=== PATIENT | female | born 1955 | race Caucasian/White ===

== ENCOUNTER → 2016-09-04 | Day surgery (SDC) | payer OTHER, MEDICARE ==
[2016-09-01 15:10] VITALS: Ht 162.6 cm; Wt 111.4 kg
[~2016-09-04] VITALS: Ht 162.6 cm; Wt 111.4 kg
[~2016-09-04] MED LIST: APR25 PO; ASPEC81 PO; DICY10CA12 PO; DILT120C68 PO; ISOS-10 PO; LEVO125T4 PO; LIDOCAINE HCL 2% 2 ML VIAL (20MG/ML) ONE; NITR0.4S UT; OMEP40CA41 PO; OXGN; PROPOFOL IV EMULSION 10 MG/ML 20 ML VIAL IV ONE; SODIUM CHLORIDE 0.9% 500ML 500 ML IV ONE; TRAZ50TA35 PO; ZNTT/150 PO
--- NOTE | 2016-09-04 10:00 | Endo History and Physical ---
History & Physical Date of Service: Sep 04, 2016. Chief Complaint: history of polyps Referring Physician: Dr. Emi Dela Cruz History of Present Illness History of polyps, for surveillance colonoscopy. Past Medical History Reflux, Hypertension, Thyroid Disease, Kidney Disease Past Surgical History Hx Cardiac Surgery: No Hx Internal Defibrillator: No Hx Pacemaker: No Hx Abdominal Surgery: Yes (MAC, KG, UMBILICAL HERNIA REPAIR X 2, APPY) Hx of Implantable Prosthesis: No Hx Post-Op Nausea and Vomiting: No Hx Cancer Surgery: No Hx Thoracic Surgery: Yes (CERVICAL FUSION, LUMBAR FUSION/LAMINECTOMY) Hx Orthopedic: No Hx Urinary Tract Surgery: No Social History Smoking Status: Never Smoker Hx Substance Use: No Hx Alcohol Use: No Allergies Coded Allergies: Adhesives (Verified Allergy, Unknown, RASH/ITCHING, 09/01/16) Morphine (Verified Adverse Reaction, Unknown, GI UPSET, 09/01/16) Current Medications Reported Home Medications Medications Dose Route/Sig Max Daily Dose Days Date Category Oxygen Gas 2 Liters NA HS 09/01/16 Reported Isosorbide Mononitrate ER (Isosorbide Mononitrate) 60 Mg Tabcr 1 Tab PO QAM 09/01/16 Reported Zantac (Ranitidine HCl) 150 Mg Tab 150 Mg PO HS 09/01/16 Reported Dicyclomine Hcl 10 Mg Cap 1 Cap PO BID 30 09/01/16 Reported Apresoline (Hydralazine Hcl) 25 Mg Tab 0.5 Tab PO BID 09/01/16 Reported Levothyroxine Sodium 125 Mcg Tab 1 Tab PO QAM 90 09/01/16 Reported Trazodone (Trazodone HCl) 50 Mg Tab 50 Mg PO HS 09/01/16 Reported Aspirin EC Low Dose (Aspirin) 81 Mg Ectab 81 Mg PO QAM 12/03/15 Rx Tiazac (Diltiazem HCl) 120 Mg Capcr 120 Mg PO BID 12/02/15 Reported Nitrostat (Nitroglycerin) 0.4 Mg Sub 0.4 Mg UT PRN 04/30/14 Reported Prilosec (Omeprazole) 40 Mg Cap 40 Mg PO QAM 04/30/14 Reported Vital Signs Weight (Kilograms): 111.36 Height (Feet): 5 Height (Inches): 4 Date Time Temp Pulse Resp B/P Pulse Ox O2 Delivery O2 Flow Rate FiO2 09/04/16 08:54 36.8 90 20 128/83 95 Room Air Physical Exam General Appearance: WD/WN, no apparent distress, + obese Respiratory/Chest: Auscultation: breath sounds normal, no wheezing Cardiovascular: Heart Auscultation: RRR, no murmurs Abdomen: Inspection & Palpation: soft, no tenderness, guarding & rebound Assessment and Plan Cleared for colonoscopy.
--- NOTE | 2016-09-04 10:39 | GI REPORT ---
Procedure Date: 09/04/2016 9:46 AM Procedure: Colonoscopy Indications: High risk colon cancer surveillance: Personal history of colonic polyps Medicines: Monitored Anesthesia Care Complications: No immediate complications. Estimated blood loss: None. Estimated Blood Loss: Estimated blood loss: none. Procedure: Pre-Anesthesia Assessment: - Prior to the procedure, a History and Physical was performed, and patient medications, allergies and sensitivities were reviewed. The patient's tolerance of previous anesthesia was reviewed. - ASA Grade Assessment: III - A patient with severe systemic disease. After I obtained informed consent, the scope was passed under direct vision. Throughout the procedure, the patient's blood pressure, pulse, and oxygen saturations were monitored continuously. The scope was introduced through the anus and advanced to the terminal ileum, with identification of the appendiceal orifice and IC valve. The colonoscopy was performed with ease. The patient tolerated the procedure well. The quality of the bowel preparation was good. The bowel preparation used was split dose MIralax. Findings: A 2 mm polyp was found in the cecum. The polyp was sessile. The polyp was removed with a cold snare. Resection and retrieval were complete. Two sessile polyps were found in the ascending colon. The polyps were 2 mm in size. These polyps were removed with a cold snare. Resection and retrieval were complete. Two sessile polyps were found in the transverse colon. The polyps were 2 mm in size. These polyps were removed with a cold snare. Resection and retrieval were complete. A 1 mm polyp was found in the descending colon. The polyp was sessile. The polyp was removed with a cold snare. Resection and retrieval were complete. Multiple medium-mouthed diverticula were found in the sigmoid colon. Verification of patient identification for the specimens was done by the physician and nurse using the patient's name, date and medical record number. Impression: - One 2 mm polyp in the cecum, removed with a cold snare. Resected and retrieved. - Two 2 mm polyps in the ascending colon, removed with a cold snare. Resected and retrieved. - Two 2 mm polyps in the transverse colon, removed with a cold snare. Resected and retrieved. - One 1 mm polyp in the descending colon, removed with a cold snare. Resected and retrieved. - Diverticulosis in the sigmoid colon. - The colon was otherwise normal to the terminal ileum with retroflexed views of the rectum. Recommendation: - Repeat colonoscopy for surveillance based on pathology results. Faawd Garcias M.D. Fawad Garcias MD 09/04/2016 10:38:45 AM This report has been signed electronically. Note Initiated On: 09/04/2016 9:46 AM
--- NOTE | 2016-09-04 10:44 | Discharge Instructions ---
Endoscopy Patient Instructions Date / Procedure(s) Performed Sep 04, 2016. Colonoscopy Allergy Information Coded Allergies: Adhesives (Verified Allergy, Unknown, RASH/ITCHING, 09/01/16) Morphine (Verified Adverse Reaction, Unknown, GI UPSET, 09/01/16) Discharge Date / Findings Sep 04, 2016. Multiple small polyps. Diverticulosis. Medication Instructions Stopped Medication(s): stopped ASA Sunday Restart Stopped Medication(s): Resume all medications today. Provider Instructions Activity Restrictions - No exercising or heavy lifting for 24 hours. - Do not drink alcohol the day of the procedure. - Do not drive a car or operate machinery until the day after the procedure. - Do not make any important decisions or sign important papers in 24 hours after the procedure. Following Day: - Return to full activity which may include returning to work/school. Diet Start your diet with liquids and light foods (jello, soup, juice, toast). Then eat your usual diet if not nauseated. Treatment For Common After Affects For mild abdominal pain, bloating, or excessive gas: - Rest - Eat lightly - Lie on right side Follow-Up Information Follow-up with Dr. Emi Dela Cruz as scheduled Anesthesia Information What You Should Know You have had a procedure that required some medicine to reduce anxiety and discomfort. This treatment is called moderate sedation. After receiving the treatment, you may be sleepy, but you will be able to breathe on your own. The effects of the treatment may last for several hours. Follow these instructions along with Activity/Diet recommendations noted above: * Do NOT do anything where dizziness or clumsiness would be dangerous. * Rest quietly at home today, then you can be up and about tomorrow. * Have a responsible person stay with you the rest of today. * You may have had an I.V. today. If so, you may take the dressing off later today. Recommendations Call your doctor if: * Trouble breathing * Continuous vomiting for more than 24 hours * Temperature above 101 degrees * Severe abdominal pain or bloating * Pain not relieved by pain medicine ordered * There is increased drainage or redness from any incision * A large amount of rectal bleeding greater than 2-3 tablespoons. (If you had a polyp/s removed or have hemorrhoids, a small amount of blood - from the rectum is to be expected.) * You have any unanswered questions or concerns. IN THE EVENT OF A SERIOUS EMERGENCY, GO TO THE NEAREST EMERGENCY ROOM Your discharge instructions were prepared by provider Fawad Garcias. Patient Instructions Signature Page Cheyenne Reina Patient (or Guardian) Signature/Date: I have read and understand the instructions given to me by my caregivers. Caregiver/RN/Doctor Signature/Date: The above-named patient and/or guardian has received patient instructions on this date. + Original Patient Signature Page (only) stays with chart. Please make copy for patient.
[2016-09-04 11:04] VITALS: BP 143/80; PULSE 83; O2SAT 95
--- NOTE | 2016-09-04 11:19 | Anesthesiology Progress Note ---
Anesthesia Post Op Note Date & Time Sep 04, 2016 at 11:19 Vital Signs Pain Intensity: 0 Vital Signs Past 12 Hours Date Time Temp Pulse Resp B/P Pulse Ox O2 Delivery O2 Flow Rate FiO2 09/04/16 11:04 83 20 143/80 95 Room Air 09/04/16 10:52 77 20 150/78 94 Room Air 09/04/16 10:35 86 20 151/81 95 Room Air 09/04/16 08:54 36.8 90 20 128/83 95 Room Air Notes Mental Status: alert / awake / arousable, participated in evaluation Pt Amnestic to Procedure: Yes Nausea / Vomiting: adequately controlled Pain: adequately controlled Airway Patency, RR, SpO2: stable & adequate BP & HR: stable & adequate Hydration State: stable & adequate Anesthetic Complications: no major complications apparent
== END | disposition home or self-care (01) ==
LOC: C.GI 08:30
PROVIDERS: ATTEND Internal Medicine Gastroenterology
DX: Z12.11 Encounter for screening for malignant neoplasm of colon (principal); D12.0 Benign neoplasm of cecum; D12.2 Benign neoplasm of ascending colon; D12.4 Benign neoplasm of descending colon; D12.3 Benign neoplasm of transverse colon; K57.30 Diverticulosis of large intestine without perforation or abscess without bleeding; I10 Essential (primary) hypertension

== ENCOUNTER → 2017-06-21 | Day surgery (SDC) | payer OTHER, MEDICARE ==
[~2017-06-21] VITALS: Ht 162.6 cm; Wt 103.0 kg
[~2017-06-21] MED LIST changes: +ACETAMINOPHEN 325 MG TAB PO PRN; -APR25 PO; +ATOR-54 PO; +ATROPINE SULFATE 0.1 MG/ML 5ML SYR IV PRN; +Cartia XT PO; -DILT120C68 PO; +DILT240C48 PO; +FENTANYL CITRATE INJ 50 MCG/1 ML 2 ML VIAL ONE; +FURO20TA PO; +HEPARIN SOD (PORCINE) 1000 UNIT/ML 10 ML VIAL ONE; +LEVO100T7 PO; -LEVO125T4 PO; -LIDOCAINE HCL 2% 2 ML VIAL (20MG/ML) ONE; +MIDAZOLAM HCL 1 MG/ML 2ML VIAL ONE; +NITROGLYCERIN/D5W 100MCG/ML 20ML SYR ONE; +NiCARDipine HCL INJ 2.5 MG/ML 10 ML AMP ONE; +ONDANSETRON INJ 2 MG/ML 2 ML VIAL IV PRN; -PROPOFOL IV EMULSION 10 MG/ML 20 ML VIAL IV ONE; +SODIUM CHLORIDE 0.9% 1000ML 250 ML IV PRN; -SODIUM CHLORIDE 0.9% 500ML 500 ML IV ONE
[2017-06-21 07:08] VITALS: BP 121/71; PULSE 71; TEMP 36.5; O2SAT 98; Ht 162.6 cm; Wt 103.0 kg
--- NOTE | 2017-06-21 08:17 | History & Physical Bridge Note ---
H&P Re-Evaluation Bridge Note: I have examined the patient, reviewed the History & Physical and in the interval since the performance of the History & Physical I have noted the following changes of clinical significance: No changes noted
--- NOTE | 2017-06-21 08:19 | Procedure Note ---
Pre-Mod Sedation Assessment General Date of Moderate Sedation: Jun 21, 2017. Vital Signs: Vital Signs Past 12 Hours Date Time Temp Pulse Resp B/P (MAP) Pulse Ox O2 Delivery O2 Flow Rate FiO2 06/21/17 07:08 36.5 71 16 121/71 98 Room Air Review Cardiovascular: regular rate, rhythm, no edema, no gallop Abdomen: normal bowel sounds, non tender, soft Lungs: chest non-tender, lungs clear, normal breath sounds Pre-Sedation Airway Assessment Oral Cavity: Dentures Short Thick Neck: No Hx of Sleep Apnea: Yes Smoking Status: Never Smoker Mallampati Classification: Class III ASA Classification: Class III Procedure Planning Contraindications-for Mod Sed: None Yes Notes The planned sedation has been discussed with the patient and consent obtained. I have identified the patient, determined the appropriateness of sedation and have assessed the patient immediately prior to the procedure. All medicine(s) and interventions are by my order.
--- NOTE | 2017-06-21 09:02 | Procedure Note ---
Post-Mod Sedation Assessment General Date of Moderate Sedation Jun 21, 2017. Vital Signs: Vital Signs Past 12 Hours Date Time Temp Pulse Resp B/P (MAP) Pulse Ox O2 Delivery O2 Flow Rate FiO2 06/21/17 08:50 61 18 147/85 (105) 95 Mask 3 06/21/17 07:08 36.5 71 16 121/71 98 Room Air Review - Discharge Criteria Vital Signs Stable: Yes Alert/Oriented/Conversant: Yes Returned to Baseline Mental St: Yes Nausea Absent/Minimal: Yes Pain/Discomfort/Absent/Minimal: Yes Normal/Baseline Respirations: Yes Active Bleeding?: No Pt Received D/C Instructions: Yes Prescriptions Given: Transmitted Specific Proced. D/C Criteria Distal Pulses Present (Cardiac: Yes Groin site assessed-Card Cath: Yes Voided Prior To Discharge: Yes Discharged Patients Adult Escort/Transportation: Yes
--- NOTE | 2017-06-21 09:18 | Cardiac Catheterization ---
Procedure Note Procedure Date Jun 21, 2017. Pre-Procedure Diagnosis Angina AUC Score 7 Post-Procedure Diagnosis Normal Coronary Arteries Procedure(s) Performed Coronary Angiography, Left Heart Cath Forest Technician Dr. Patel Heat Treat Supervisor(s) Estimated Blood Loss 5cc Medication(s) Heparin, Nicardipine, Nitroglycerin, Versed, Lidocaine 1% Summary of Findings Normal coronary arteries Elevated LVEDP Hemodynamics Rest Ao: 122/74/96 Final Ao: 131/70/97 LV: 128/3/22 Recommendations Medical therapy and/or Counseling Specimens None Radiation Exposure (mGy) 1352 Contrast (mls) 45 Anesthesia Moderate sedation. Start 0826. End 0850. Sedation monitor: Keisha Talavera RN Procedural Complication(s) None Disposition Tool Design Engineer Holding/Recovery ACC Data Cardiac Status Clinical evaluation leading to the procedure CAD Presntation: Unstable angina Anginal Classification: CCS III Heart Failure: No Cardiogenic Shock w/in 24Hrs: No Cardiac Arrest w/in 24Hrs: No Imaging studies past 6 months: No Stress studies past 6 months: Yes Stress Testing w/SPECT MPI: Yes - Indeterminant Coronary Anatomy Dominant: Right Left Main (% Stenosis): Normal LAD (% Stenosis): Normal D1 (% Stenosis): Normal D2 (% Stenosis): Normal D3 (% Stenosis): Normal Circumflex (% Stenosis): Normal OM1 (% Stenosis): Normal OM2 (% Stenosis): Normal L PL1 (% Stenosis): Normal RCA (% Stenosis): Ostial (vertical take off from aorta with 90 degree bend in proximal segement without stenosis), Normal R PDA (% Stenosis): Normal R PL1 (% Stenosis): Normal AM (% Stenosis): Normal Diagnostic Status: Elective Closure Device Percutaneous Entry Location: Radial Closure Device: Radial Band Recommendations: Medical therapy and/or Counseling Intraprocedure Events Significant Dissection: No Perforation: No
--- NOTE | 2017-06-21 09:42 | Discharge Instructions ---
Discharge Instructions Procedure Procedure Date: Jun 21, 2017. Reason for Visit: Chest Pain . Discharge Discharge Date: Jun 21, 2017. Discharge Diagnosis: status post cardiac catheterization Elevated left ventricular end diastolic pressure. Last Recorded Wt (Kilograms): 103 Anesthesia Post Anesthesia Instructions: If you have had General Anesthesia or IV Sedation: * Do not drive today. * Resume driving when surgeon permits. * Do not make important decisions or sign legal documents today. * Call surgeon for: 1. Temperature elevations greater than 101 degrees F. 2. Uncontrollable pain. 3. Excessive bleeding. 4. Persistent nausea and vomiting. 5. Medication intolerance (nausea, vomiting or rash). * For nausea and vomiting use only clear liquids such as: tea, soda, bouillon until nausea subsides, then gradually increase diet as tolerated. * If you have any concerns or questions, call your surgeon's office. If physician is unavailable and it is an emergency, call 911 or go to the nearest emergency room. Instructions Activity Recommendations: limitations as noted below Return to School/Work: with the following limitations Recommended Home Diet: low sodium Allergies: Coded Allergies: Adhesives (Verified Allergy, Unknown, RASH/ITCHING, 09/01/16) Morphine (Verified Adverse Reaction, Unknown, GI UPSET, 09/01/16) Provider Instructions ACTIVITY RECOMMENDATIONS: Excess manipulation of the wrist should be avoided for the next 24-48 hours. * No lifting over 2 pounds (approximately a 1/2 gallon of milk) with the utilized arm for 24 hours. * No strenuous activity such as bowling or tennis for 3 days. * Keep the site of the procedure covered with a bandage for 24 hours. *You may shower the day after the procedure. Do not take a tub bath or submerge the puncture site in water for the next 3 days. *Do not operate any motorized equipment for 3 days. SPECIAL CARE INSTRUCTIONS: The site may be slightly bruised and sore following your procedure. Should any of the following occur, contact the DrRosita who performed your procedure. 1. Redness/inflammation, swelling, chills, or fever, or colored drainage at procedure site within 3-7 days after your procedure. 2. Coldness, discoloration, ongoing numbness, severe pain, or swelling. Expect mild tingling of hand and tenderness at the puncture site for up to three days. If this persists beyond three days, or other symptoms develop, notify the Dr. who performed your procedure. BLEEDING: If the procedure site on your wrist begins to bleed, do not panic 1. Place 1 or 2 fingers firmly just slightly above the insertion site to stop the bleeding. You may be able to feel your pulse as you hold pressure. 2. Lift your finger after 5 minutes to see if the bleeding has stopped. 3. Once the bleeding has stopped, gently wipe the wrist area clean with a bandage. * If the bleeding from your wrist does not stop after 10 minutes, or if there is a large amount of bleeding or spurting, call 911 ([address] drive yourself to the hospital). SKIN IRRITATION: * You may experience some redness and/or swelling in the area where radiation was administered. If any skin irritation occurs, please contact your family physician. FOLLOW UP VISIT: Keep any scheduled doctor appointments. Follow Up Additional Instructions: Begin lasix 20mg daily on Sunday. Repeat blood work in one week. Follow-up with: Easton Rodgers PA-C as scheduled. Rivas Tadeo Recommendations: Call your doctor if: * Temperature above 101 degrees * Pain not relieved by pain medicine ordered * There is increased drainage or redness from any incision * You have any unanswered questions or concerns. Your Doctors Instructions noted above were prepared by provider Jhony Patel. Patient Signature Section: Patient Instructions Signature Page Cheyenne Huang Patient (or Guardian) Signature/Date: I have read and understand the instructions given to me by my caregivers. Caregiver/RN/Doctor Signature/Date: The above-named patient and/or guardian has received patient instructions on this date. + Original Patient Signature Page (only) stays with chart. Please make copy for patient.
[2017-06-21 12:00] VITALS: BP 124/70; PULSE 62; O2SAT 98
== END | disposition home or self-care (01) ==
LOC: C.CATH 06:56
PROVIDERS: ATTEND Internal Medicine Cardiovascular Disease
DX: I20.9 Angina pectoris, unspecified (principal)